=== PATIENT | female | born 1985 | race Caucasian/White ===

== ENCOUNTER 2022-06-21 08:19 | Day surgery (SDC) | payer MEDICAID ==
[~2022-06-21] VITALS: Ht 154.9 cm; Wt 58.3 kg
[2022-06-21 08:30] VITALS: BP 167/106
[2022-06-21] MEDS ORDERED: ASPI-147 PO (08:53)
[2022-06-21] MEDS ORDERED: INDLA60C PO (08:53)
[2022-06-21 09:50] VITALS: BP 169/97
[2022-06-21 10:05] VITALS: BP 150/103
[2022-06-21 10:20] VITALS: BP 160/104
[2022-06-21 10:35] VITALS: BP 159/101
[2022-06-21 11:05] VITALS: BP 143/89
[2022-06-21 11:19] LABS: APPEARANCE,CSF CLEAR
[2022-06-21 11:20] LABS: CSF RBC 0 /CU MM (0); CSF SUPERNATANT COLOR COLORLESS; CSF VOLUME 14.6 ML; CSF WBC CT 4 /CU MM (0-5); TUBE# COUNTED 4
== END 2022-06-21 11:20 | disposition home or self-care (01) ==
LOC: SSTAY O 08:19
PROVIDERS: ATTEND Nurse Practitioner Family
DX: R90.82 White matter disease, unspecified (principal); G43.009 Migraine without aura, not intractable, without status migrainosus; Z98.51 Tubal ligation status; Z79.899 Other long term (current) drug therapy
CPT/HCPCS: 62328; 82040; 82042; 82164; 82784; 83873; 83916; 86592; 86617; 89051; J7030